=== PATIENT | female | born 1950 | race Caucasian/White ===

== ENCOUNTER 2017-07-03 05:25 | Observation (INO) | payer MEDICARE ==
[~2017-07-03] VITALS: Ht 152.4 cm; Wt 85.7 kg
[2017-07-03] MEDS ORDERED: ONDANSETRON HCL INJ 2 MG/ML VIAL IV STA (06:22)
[2017-07-03] MEDS ORDERED: PANTOPRAZOLE 40 MG 10ML VIAL IV STA (06:22)
[2017-07-03] MEDS ORDERED: MORPHINE SULFATE 2 MG/ML SYR IV STA (06:22)
[2017-07-03] MEDS ORDERED: SODIUM CHLORIDE 0.9% 1000ML 1,000 ML IV STA ×2 (06:22→16:08)
[2017-07-03 06:52] LABS: BASOPHILS % 0.2 % (0.0-1.0); HEMATOCRIT 41.7 % (34.2-44.1); LYMPHOCYTES # (AUTO) 0.5 (1.0-3.2); LYMPHOCYTES % 3.8 % (18.0-39.1); MEAN CORPUSCULAR VOLUME 91.6 fL (81-99); MONOCYTES # (AUTO) 0.3 (0.2-0.8); MONOCYTES % 2.6 % (4.4-11.3); PLATELET COUNT 283 x10e3/uL (140-360); RED BLOOD COUNT 4.55 x10e6/uL (3.6-5.1); RED CELL DISTRIBUTION WIDTH 12.5 % (11.7-14.4)
[2017-07-03 06:54] LABS: BILIRUBIN,URINE NEGATIVE (NEGATIVE); CLARITY,URINE HAZY (CLEAR); COLOR,URINE YELLOW (YELLOW); KETONES,URINE TRACE (NEGATIVE); LEUKOCYTE ESTERASE ,URINE NEGATIVE (NEGATIVE); NITRITE,URINE NEGATIVE (NEGATIVE); PROTEIN,URINE DIPSTICK NEGATIVE (NEGATIVE); URINE UROBILINOGEN 0.2 mg/dL (0.2 - 1)
[2017-07-03 07:07] LABS: WBC,URINE (MAN) 0-5 /HPF (0-5)
[2017-07-03 07:08] LABS: AMORPHOUS SEDIMENT,URINE MODERATE (FEW); EPITHELIAL CELLS,URINE RARE /LPF; MUCUS,URINE MODERATE (RARE); RBC,URINE 0-5 /HPF (0-5)
[2017-07-03 07:31] LABS: ALANINE AMINOTRANSFERASE 34 IU/L (0-55); ALBUMIN 4.8 g/dL (3.5-5.0); ALBUMIN/GLOBULIN RATIO 1.3 (0.8-2.0); ALKALINE PHOSPHATASE 67 IU/L (40-150); AMYLASE 67 U/L (25-125); ANION GAP 15.7 mmol/L (8-16); BLOOD UREA NITROGEN 16 mg/dL (7-26); BUN/CREATININE RATIO 20 (6-25); CALCIUM 9.7 mg/dL (8.4-10.2); CARBON DIOXIDE 22 mmol/L (22-29); CHLORIDE 99 mmol/L (98-107); CREATINE KINASE 243 IU/L (29-168); CREATININE, SERUM 0.81 mg/dL (0.57-1.11); EST GLOMERULAR FILTRATION RATE > 60 ML/MIN (60-); GLUCOSE 182 mg/dL (74-118); LIPASE 11 U/L (8-78); POTASSIUM 3.7 mmol/L (3.5-5.1); SODIUM 133 mmol/L (136-145)
[2017-07-03 07:59] LABS: INR 1.02; PROTHROMBIN TIME 12.6 seconds (11.9-14.5)
[2017-07-03 08:00] LABS: PARTIAL THROMBOPLASTIN TIME 27.2 seconds (23.8-35.5)
--- NOTE | 2017-07-03 09:01 | Diagnostic Imaging Report ---
EXAMINATION: Chest, CHEST SINGLE (PORTABLE) INDICATION: Chest pain COMPARISON: None FINDINGS: LINES: None. Heart: Normal cardiac silhouette. Vascular: The pulmonary vasculature is within normal limits. Mediastinum: No mediastinal, hilar, or axillary mass or lymphadenopathy. Lungs: No parenchymal mass. No focal consolidation. Pleura: No pleural effusion. No pneumothorax. Bones: No acute osseous abnormality. Soft tissues: Normal. Impression: No acute radiographic abnormality. Signed by: Dr. Molina Reyes M.D. on 07/03/2017 8:58 AM
--- NOTE | 2017-07-03 09:10 | Diagnostic Imaging Report ---
EXAM: CT Abdomen and Pelvis WITH contrast INDICATION: Abdominal pain COMPARISON: None. TECHNIQUE: Abdomen and pelvis were scanned utilizing a multidetector helical scanner from the lung base to the pubic symphysis after administration of contrast. Coronal and sagittal reformations were obtained. Protocol: General survey IV CONTRAST: 100 mL of Isovue 370 ORAL CONTRAST: Water COMPLICATIONS: None RADIATION DOSE: Total Exam DLP: 630.9 mGy*cm. CTDIvol has been reviewed. It is below the limits set by the Radiation Protocol Committee (RPC). FINDINGS: LINES: None. Lower thorax: No parenchymal abnormality. No pneumothorax. No pleural effusion. Liver: No focal mass. No hepatomegaly. Normal parenchyma. The hepatic and portal veins are patent. Gallbladder: No gallstones. No gallbladder distention. Biliary tree: No intrahepatic duct dilation. No extrahepatic duct dilation. Spleen: No splenomegaly. No focal mass. Pancreas: Normal parenchymal enhancement. No focal mass. Normal pancreatic duct. No peripancreatic inflammatory changes. Kidneys: No obstructing calculi. No hydronephrosis. No solid enhancing mass. No cysts. No perinephric soft tissue inflammatory changes. Adrenal glands: No adrenal nodules.. Bladder: Normal urinary bladder. Pelvic organs: Hysterectomy. No ovaries are visualized. GI: No bowel wall thickening. No air-fluid levels. The stomach and small bowel are normal. The colon is normal. The appendix is distended and fluid-filled, measuring 1.7 cm on greatest transverse diameter, series 2 image 59 minimal adjacent soft tissue inflammatory changes, series 2 image 57. A moderate amount of retained feces limits intraluminal evaluation of the colon. Peritoneum/retroperitoneum: No pneumoperitoneum. No ascites. No drainable fluid collection. Lymph nodes: No lymphadenopathy. . Vessels: The abdominal aorta and iliac vessels are patent. The celiac, superior mesenteric, and inferior mesenteric arteries are patent. Single bilateral renal arteries are patent. Atherosclerotic calcifications. Bones: No focal abnormality. Degenerative changes of the lumbar spine. Fusion of T11 and T12 with kyphotic angulation. Soft tissues: No focal abnormality. IMPRESSION: Fluid-filled distended appendix with adjacent soft tissue inflammatory changes likely represents acute appendicitis. No evidence of perforation or abscess formation. The findings were discussed with Dr. Mcpherson at 0905 hours on 07/03/2017. Signed by: Dr. Molina Reyes M.D. on 07/03/2017 9:06 AM
[2017-07-03] MEDS ORDERED: PIPER-TAZ 3.375 GM 50 ML IV STA (09:32)
[2017-07-03] MEDS ORDERED: D5.45%NS/KCL 20MEQ 1,000 ML IV SCH (09:33)
[2017-07-03] MEDS ORDERED: ONDANSETRON HCL INJ 2 MG/ML VIAL IV PRN ×2 (09:45→16:15)
[2017-07-03] MEDS ORDERED: MORPHINE SULFATE 2 MG/ML SYR IV PRN ×2 (09:45→16:15)
--- OUTSIDE RECORDS SUMMARY | 2017-07-03 09:56 | XMS REPORT ---
Author [facility] Address Unknown Phone Unavailable Care Team Providers Care Residential Lawn Specialist Name Role Phone VENUS JUAREZ Unavailable Unavailable Problems This patient has no known problems. Allergies, Adverse Reactions, Alerts This patient has no known allergies or adverse reactions. Medications This patient has no known medications. Results Test Description Test Time Test Comments Text Results Atomic Results Result Comments CHEST SINGLE (PORTABLE) [place] [address] Patient Name: LEONARDA GAUTHIER MR #: [id number] : 1950 Age/Sex: 67/F Req #: [id number] Adm Physician: Ordered by: ANGEL GARCIA MD Report #: [id number] Location: ER Room/Bed: Procedure: [id number] DX/CHEST SINGLE (PORTABLE) Exam Date: 07/03/17 Exam Time: 0840 REPORT STATUS: Signed EXAMINATION: Chest, CHEST SINGLE (PORTABLE) INDICATION: Chest pain COMPARISON : None FINDINGS: LINES: None. Heart: Normal cardiac silhouette. Vascular: The pulmonary vasculature is within normal limits. Mediastinum: No mediastinal, hilar, or axillary mass or lymphadenopathy. Lungs: No parenchymal mass. No focal consolidation. Pleura: No pleural effusion. No pneumothorax. Bones: No acute osseous abnormality. Soft tissues: Normal. Impression: No acute radiographic abnormality. Signed by: Dr. Frankie Kulkarni M.D. on 07/03/2017 8:58 AM Dictated By: FRANKIE KULKARNI MD 7 COPY TO: ANGEL GARCIA MD CT ABDOMEN/PELVIS W [facility] [address] [place] [address] Patient Name: LEONARDA GAUTHIER MR #: [id number] : 1950 Age/Sex: 67/F Req # : [id number] Adm Physician: Ordered by: ANGEL GARCIA MD Report #: [id number] Location: ER Room/Bed: Procedure: [id number] CT/CT ABDOMEN/PELVIS W Exam Date: 07/03/17 Exam Time : 0820 REPORT STATUS: Signed EXAM: CT Abdomen and Pelvis WITH contrast INDICATION: Abdominal pain COMPARISON: None. TECHNIQUE: Abdomen and pelvis were scanned utilizing a multidetector helical scanner from the lung base to the pubic symphysis after administration of contrast. Coronal and sagittal reformations were obtained. Protocol: General survey IV CONTRAST: 100 mL of Isovue 370 ORAL CONTRAST: Water COMPLICATIONS : None RADIATION DOSE: Total Exam DLP: 630.9 mGy*cm. CTDIvol has been reviewed. It is below the limits set by the Radiation Protocol Committee (RPC) . FINDINGS: LINES: None. Lower thorax: No parenchymal abnormality. No pneumothorax. No pleural effusion. Liver: No focal mass. No hepatomegaly. Normal parenchyma. The hepatic and portal veins are patent. Gallbladder: No gallstones. No gallbladder distention. Biliary tree: No intrahepatic duct dilation. No extrahepatic duct dilation. Spleen: No splenomegaly. No focal mass. Pancreas: Normal parenchymal enhancement. No focal mass. Normal pancreatic duct. No peripancreatic inflammatory changes. Kidneys: No obstructing calculi. No hydronephrosis. No solid enhancing mass. No cysts. No perinephric soft tissue inflammatory changes. Adrenal glands: No adrenal nodules.. Bladder: Normal urinary bladder. Pelvic organs: Hysterectomy. No ovaries are visualized. GI: No bowel wall thickening. No air-fluid levels. The stomach and small bowel are normal. The colon is normal. The appendix is distended and fluid-filled, measuring 1.7 cm on greatest transverse diameter, series 2 image 59 minimal adjacent soft tissue inflammatory changes, series 2 image 57. A moderate amount of retained feces limits intraluminal evaluation of the colon. Peritoneum/retroperitoneum: No pneumoperitoneum. No ascites. No drainable fluid collection. Lymph nodes: No lymphadenopathy. . Vessels: The abdominal aorta and iliac vessels are patent. The celiac, superior mesenteric, and inferior mesenteric arteries are patent. Single bilateral renal arteries are patent. Atherosclerotic calcifications. Bones: No focal abnormality. Degenerative changes of the lumbar spine. Fusion of T11 and T12 with kyphotic angulation. Soft tissues: No focal abnormality. IMPRESSION: Fluid-filled distended appendix with adjacent soft tissue inflammatory changes likely represents acute appendicitis. No evidence of perforation or abscess formation. The findings were discussed with Dr. Juarez at 0905 hours on 07/03/2017. Signed by: Dr. Frankie Kulkarni M.D. on 07/03/2017 9:06 AM Dictated By: FRANKIE KULKARNI MD 5 Transcribed By: LEXA on 07/03/17905 COPY TO: ANGEL GARCIA MD
[2017-07-03] MEDS ORDERED: IOPAMIDOL 370 MG/ML 200 ML INFUS..BTL INJ ONE (10:57)
[2017-07-03] MEDS ORDERED: SODIUM CHLORIDE 0.9% 50ML 50 ML ONE (10:57)
[2017-07-03] MEDS ORDERED: HYDROCODONE/APAP 7.5MG-325MG 1 EA TAB PO PRN ×2 (13:30→16:15)
--- NOTE | 2017-07-03 13:57 | Operative Report ---
DATE OF PROCEDURE: July 03, 2017 PREOPERATIVE DIAGNOSIS: Acute appendicitis. POSTOPERATIVE DIAGNOSIS: Acute appendicitis. PROCEDURE PERFORMED: Appendectomy laparoscopically. ANESTHESIA: General endotracheal. ESTIMATED BLOOD LOSS: Minimal. DRAINS: None. COMPLICATIONS: None. INDICATIONS AND FINDINGS: The patient is a 67-year-old healthy female admitted complaining of abdominal pain for several days. The pain appeared in the mid abdominal and upper area then localized to the right lower quadrant. Patient had a CT scan of the abdomen in the emergency room that revealed changes consistent with acute appendicitis. INTRAOPERATIVE FINDINGS: Acute appendicitis with an appendix that was thickened with some surrounded erythema. There was no abscess formation and no perforation. There were some pelvic adhesions from previous . DESCRIPTION OF PROCEDURE: With the patient lying on the operative table in the supine position after administration of general anesthesia, she was prepped and draped for appendectomy laparoscopically. The procedure was begun by establishing a pneumoperitoneum in the umbilical site after stab wound was made in that location and the saline drop test was performed. Pneumoperitoneum was insufflated to 15 mm of pressure and then an 11-12 trocar placed in that location. We placed a total of 3 other 5-mm trocars, one in the right upper quadrant, one in the suprapubic and right lower quadrant region, and another one in the left lower quadrant region. The appendix was then grasped with the bowel clamps and mobilized until we were able to see the junction of the appendix with the cecum. The mesoappendix was handled by cauterization as the appendix was somewhat adherent to the pelvis and the cecum to the lateral wall, but we were able with serial mobilization and electrocautery to deal with the mesoappendix that way instead of using the Endo JAMAAL stapler. Once we prepared the appendix for transection, we transected appendix with a small piece of cecum carefully preserving the ileocecal valve. The specimen was then placed in an Endobag and removed through the umbilical trocar. The right lower quadrant was irrigated. There was no bile leak and no bleeding. Then, we suctioned all the fluid out and then placed omentum off of the appendiceal stump and then released the pneumoperitoneum, closed the wounds using 0 Vicryl for the umbilical fascia, 3-0 Vicryl for the subcutaneous tissue in that location as well as subxiphoid port and the skin of all the ports was closed using sorin. Antonio 0.25% with epinephrine was given as local block at the end of the case. The patient tolerated the procedure well and taken to recovery room in stable condition. Job#: [id number] NATHALY
[2017-07-03 14:33] VITALS: BP 131/71
[2017-07-03] MEDS ORDERED: PIPER-TAZ 3.375 GM/50 ML BAG IV SCH (15:00)
[2017-07-03 15:29] VITALS: BP 131/71
[2017-07-03 15:38] VITALS: BP 131/71
[2017-07-03] MEDS: D5.45%NS/KCL 20MEQ 1,000 ML IV SCH (16:15)
[2017-07-03] MEDS: PIPER-TAZ 3.375 GM/50 ML BAG IV SCH ×2 (16:19→21:39)
[2017-07-03 16:37] VITALS: BP 118/58
[2017-07-03] MEDS ORDERED: DEXAMETHASONE SOD PHOS INJ 4 MG/ML VIAL ONE (17:15)
[2017-07-03] MEDS ORDERED: GLYCOPYRROLATE INJ 1MG/ 5 ML SYR ONE (17:15)
[2017-07-03] MEDS ORDERED: NEOSTIGMINE 5 MG/5ML SYR ONE (17:15)
[2017-07-03] MEDS ORDERED: SEVOFLURANE INHAL SOLN 250 ML PEN BTL ONE (17:15)
[2017-07-03] MEDS ORDERED: ONDANSETRON HCL INJ 2 MG/ML VIAL ONE (17:15)
[2017-07-03] MEDS ORDERED: ROCURONIUM BROMIDE 10 MG/ML 5ML VIAL ONE (17:15)
[2017-07-03] MEDS ORDERED: PROPOFOL IV EMULSION 10 MG/ML 20 ML VIAL ONE (17:15)
[2017-07-03] MEDS ORDERED: MIDAZOLAM HCL 2 MG/2 ML VIAL ONE (17:33)
[2017-07-03] MEDS ORDERED: FENTANYL CITRATE/PF 100MCG/2 ML INJ ONE (17:33)
[2017-07-03 20:00] VITALS: BP 125/58
[2017-07-04] VITALS (7 sets, daily range): BP systolic 90–137; BP diastolic 46–73
[2017-07-04] MEDS: D5.45%NS/KCL 20MEQ 1,000 ML IV SCH ×3 (01:17→17:06)
[2017-07-04] MEDS: PIPER-TAZ 3.375 GM/50 ML BAG IV SCH ×3 (04:00→17:00)
[2017-07-04 07:07] LABS: BASOPHILS % 0.1 % (0.0-1.0); EOSINOPHILS % 0.1 % (0.0-6.0); HEMOGLOBIN 11.6 g/dL (12.0-16.0); LYMPHOCYTES # (AUTO) 1.1 (1.0-3.2); LYMPHOCYTES % 14.4 % (18.0-39.1); MEAN CORPUSCULAR HEMOGLOBIN 32.5 pg (28-32); MEAN CORPUSCULAR HGB CONC 34.1 g/dL (31-35); MEAN CORPUSCULAR VOLUME 95.2 fL (81-99); MONOCYTES # (AUTO) 0.6 (0.2-0.8); MONOCYTES % 7.8 % (4.4-11.3); NEUTROPHILS # (AUTO) 6.1 (2.1-6.9); NEUTROPHILS % 77.1 % (38.7-80.0); PLATELET COUNT 230 x10e3/uL (140-360); RED BLOOD COUNT 3.57 x10e6/uL (3.6-5.1); RED CELL DISTRIBUTION WIDTH 12.9 % (11.7-14.4)
[2017-07-04 07:34] LABS: ANION GAP 11.2 mmol/L (8-16); BLOOD UREA NITROGEN 11 mg/dL (7-26); BUN/CREATININE RATIO 13 (6-25); CALCIUM 8.9 mg/dL (8.4-10.2); CARBON DIOXIDE 25 mmol/L (22-29); CHLORIDE 107 mmol/L (98-107); CREATININE, SERUM 0.85 mg/dL (0.57-1.11); EST GLOMERULAR FILTRATION RATE > 60 ML/MIN (60-); GLUCOSE 134 mg/dL (74-118); POTASSIUM 4.2 mmol/L (3.5-5.1); SODIUM 139 mmol/L (136-145)
[2017-07-04] MEDS ORDERED: MAGNESIUM HYDROXIDE 30 ML UDC PO PRN (11:00)
[2017-07-04] MEDS ORDERED: BISACODYL 10 MG SUPP PR PRN (11:30)
[2017-07-05] VITALS: BP 92/53
[2017-07-05 04:00] VITALS: BP 104/52
[2017-07-05] MEDS: PIPER-TAZ 3.375 GM/50 ML BAG IV SCH ×3 (04:10→09:43)
[2017-07-05 08:00] VITALS: BP 99/56
[2017-07-05 12:34] VITALS: BP 112/54
== END 2017-07-05 16:35 | disposition home or self-care (01) ==
LOC: ER 05:25 → UNDOADMOB 09:54 → ERHOLD 09:54 → OR 10:41 → INTOOBSV 13:23 → MED/SURG 13:23
PROVIDERS: ADMIT Surgery; ATTEND Surgery
DX: K35.80 Unspecified acute appendicitis (principal); K59.00 Constipation, unspecified
CPT/HCPCS: 36415 ×2; 44970; 71045; 74177; 80048; 80053; 81001; 82150; 82550; 82553; 83605; 83690; 83735; 84484; 85025 ×2; 85610; 85730; 88304; 93005; 97116; 97161; C1766; G0378 ×3; J1100; J2250; J2270; J2405; J2543 ×3; J7030; Q9967

== ENCOUNTER 2018-02-21 11:41 | Emergency (ER) | payer MEDICARE ==
[~2018-02-21] VITALS: Ht 157.5 cm; Wt 85.7 kg
[2018-02-21] MEDS ORDERED: MECLIZINE HCL 12.5 MG TAB PO ONE (12:00)
[2018-02-21 13:30] LABS: BILIRUBIN,URINE NEGATIVE (NEGATIVE); CLARITY,URINE SL CLOUDY (CLEAR); COLOR,URINE YELLOW (YELLOW); KETONES,URINE NEGATIVE (NEGATIVE); LEUKOCYTE ESTERASE ,URINE NEGATIVE (NEGATIVE); NITRITE,URINE NEGATIVE (NEGATIVE); PROTEIN,URINE DIPSTICK TRACE (NEGATIVE); URINE UROBILINOGEN 0.2 mg/dL (0.2 - 1)
--- NOTE | 2018-02-21 13:31 | Diagnostic Imaging Report ---
EXAMINATION: Head CT HISTORY: DCIS, vertigo COMPARISON: None. TECHNIQUE: Multidetector axial images were obtained without contrast from the foramen magnum to the vertex . The images were reconstructed using brain and bone algorithms. Thin section brain images were reformatted into coronal and sagittal planes. Intravenous contrast: None. Image quality: Motion/streaking artifact limits the evaluation of the skull base and posterior cranial fossa. Dose modulation, iterative reconstruction, and/or weight based adjustment of the mA/kV was utilized to reduce the radiation dose to as low as reasonably achievable. FINDINGS: Parenchyma: 1. No abnormal densities. 2. No mass or hemorrhage. No CT evidence of acute territorial vascular insult. 3. Small approximately 2 mm calcification along the medial aspect of the right temporal lobe, may represent sequela from remote infection such as neurocysticercosis. Extra-axial spaces:No abnormal density. No extra-axial fluid collections Brain volume: Normal for age. Ventricles: No hydrocephalus or displacement. Arteries: No density suggestive of thrombus. Dural sinuses: No abnormal density. Extra-axial spaces: No abnormal density. Foramen magnum: No mass, Chiari malformation, or basilar invagination. Sella: Enlarged, partially empty, mostly CSF filled. Paranasal/mastoid sinuses: Imaged portions unremarkable. Skull/Scalp: Diffuse prominent thickening and increased density of the skull base and calvaria bones, no discrete lytic lesions.. IMPRESSION: No intracranial mass, hemorrhage or infarct. Signed by: Dr. Haleigh Mirza M.D. on 02/21/2018 1:28 PM
--- NOTE | 2018-02-21 13:34 | Diagnostic Imaging Report ---
EXAMINATION: CHEST SINGLE (NOT PORTABLE) INDICATION: Dizziness COMPARISON: July 03, 2017 FINDINGS: TUBES and LINES: None. LUNGS: Lungs are well inflated. Lungs are clear. There is no evidence of pneumonia or pulmonary edema. PLEURA: No pleural effusion or pneumothorax. HEART AND MEDIASTINUM: The cardiomediastinal silhouette is unremarkable. BONES AND SOFT TISSUES: No acute osseous lesion. Soft tissues are unremarkable. UPPER ABDOMEN: No free air under the diaphragm. IMPRESSION: No acute thoracic abnormality. Signed by: Dr. Alexandre Craig M.D. on 02/21/2018 1:30 PM
[2018-02-21 13:41] LABS: BACTERIA,URINE FEW /HPF; EPITHELIAL CELLS,URINE RARE /LPF
[2018-02-21 14:08] LABS: BASOPHILS % 0.5 % (0.0-1.0); EOSINOPHILS # (AUTO) 0.1 (0.0-0.4); EOSINOPHILS % 2.4 % (0.0-6.0); HEMOGLOBIN 14.2 g/dL (12.0-16.0); LYMPHOCYTES # (AUTO) 1.5 (1.0-3.2); LYMPHOCYTES % 35.5 % (18.0-39.1); MEAN CORPUSCULAR HEMOGLOBIN 32.3 pg (28-32); MEAN CORPUSCULAR HGB CONC 34.6 g/dL (31-35); MEAN CORPUSCULAR VOLUME 93.4 fL (81-99); MONOCYTES # (AUTO) 0.2 (0.2-0.8); MONOCYTES % 5.8 % (4.4-11.3); NEUTROPHILS # (AUTO) 2.3 (2.1-6.9); NEUTROPHILS % 55.3 % (38.7-80.0); PLATELET COUNT 301 x10e3/uL (140-360); RED BLOOD COUNT 4.39 x10e6/uL (3.6-5.1)
[2018-02-21 14:27] LABS: ALANINE AMINOTRANSFERASE 28 IU/L (0-55); ALBUMIN 4.5 g/dL (3.5-5.0); ALBUMIN/GLOBULIN RATIO 1.3 (0.8-2.0); ALKALINE PHOSPHATASE 64 IU/L (40-150); ANION GAP 15.1 mmol/L (8-16); BLOOD UREA NITROGEN 15 mg/dL (7-26); BUN/CREATININE RATIO 18 (6-25); CARBON DIOXIDE 24 mmol/L (22-29); CHLORIDE 105 mmol/L (98-107); CREATINE KINASE 176 IU/L (29-168); CREATININE, SERUM 0.83 mg/dL (0.57-1.11); EST GLOMERULAR FILTRATION RATE > 60 ML/MIN (60-); GLUCOSE 104 mg/dL (74-118); MAGNESIUM 2.1 MG/DL (1.3-2.1); POTASSIUM 4.1 mmol/L (3.5-5.1); SODIUM 140 mmol/L (136-145)
[2018-02-21 14:51] LABS: THYROID STIMULATING HORMONE 1.326 uIU/mL (0.350-4.940)
[2018-02-21 16:12] VITALS: BP 134/77
== END 2018-02-21 16:31 | disposition home or self-care (01) ==
LOC: ER 11:41
DX: R42 Dizziness and giddiness (principal); R53.1 Weakness; H81.392 Other peripheral vertigo, left ear
CPT/HCPCS: 36415; 70450; 71045; 80053; 81001; 82550; 82553; 83735; 84443; 84484; 85025; 87086; 93005; 99284

== ENCOUNTER 2018-08-07 10:41 | Emergency (ER) | payer MEDICARE ==
[~2018-08-07] VITALS: Ht 157.5 cm; Wt 85.7 kg
[2018-08-07 11:21] LABS: BASOPHILS % 0.2 % (0.0-1.0); EOSINOPHILS # (AUTO) 0.1 (0.0-0.4); EOSINOPHILS % 0.9 % (0.0-6.0); HEMATOCRIT 43.1 % (34.2-44.1); HEMOGLOBIN 14.8 g/dL (12.0-16.0); LYMPHOCYTES # (AUTO) 0.8 (1.0-3.2); LYMPHOCYTES % 9.6 % (18.0-39.1); MEAN CORPUSCULAR HEMOGLOBIN 31.9 pg (28-32); MEAN CORPUSCULAR HGB CONC 34.3 g/dL (31-35); MEAN CORPUSCULAR VOLUME 92.9 fL (81-99); MONOCYTES # (AUTO) 0.5 (0.2-0.8); MONOCYTES % 5.9 % (4.4-11.3); NEUTROPHILS % 82.7 % (38.7-80.0); PLATELET COUNT 309 x10e3/uL (140-360); RED BLOOD COUNT 4.64 x10e6/uL (3.6-5.1); RED CELL DISTRIBUTION WIDTH 12.4 % (11.7-14.4)
[2018-08-07 11:46] LABS: STREPTOCOCCUS GRP A ANTIGEN NEGATIVE (NEGATIVE)
[2018-08-07 11:47] LABS: ALANINE AMINOTRANSFERASE 26 IU/L (0-55); ALBUMIN 4.2 g/dL (3.5-5.0); ALBUMIN/GLOBULIN RATIO 1.1 (0.8-2.0); ALKALINE PHOSPHATASE 65 IU/L (40-150); ANION GAP 13.8 mmol/L (8-16); BLOOD UREA NITROGEN 14 mg/dL (7-26); BUN/CREATININE RATIO 17 (6-25); CALCIUM 9.2 mg/dL (8.4-10.2); CARBON DIOXIDE 24 mmol/L (22-29); CHLORIDE 104 mmol/L (98-107); CREATININE, SERUM 0.82 mg/dL (0.57-1.11); EST GLOMERULAR FILTRATION RATE > 60 ML/MIN (60-); GLUCOSE 122 mg/dL (74-118); POTASSIUM 3.8 mmol/L (3.5-5.1); SODIUM 138 mmol/L (136-145)
[2018-08-07 11:50] LABS: BILIRUBIN,URINE NEGATIVE (NEGATIVE); CLARITY,URINE CLEAR (CLEAR); COLOR,URINE YELLOW (YELLOW); KETONES,URINE NEGATIVE (NEGATIVE); LEUKOCYTE ESTERASE ,URINE NEGATIVE (NEGATIVE); NITRITE,URINE NEGATIVE (NEGATIVE); PROTEIN,URINE DIPSTICK NEGATIVE (NEGATIVE); URINE UROBILINOGEN 0.2 mg/dL (0.2 - 1)
[2018-08-07 11:57] LABS: INFLUENZAE A&B ANTIGEN (RAPID) NEGATIVE (NEGATIVE)
[2018-08-07 12:01] LABS: EPITHELIAL CELLS,URINE RARE /LPF
--- NOTE | 2018-08-07 12:43 | Diagnostic Imaging Report ---
EXAM: CHEST SINGLE (PORTABLE), AP Portable DATE: 08/07/2018 Time stamp on exam: 11:33 AM INDICATION: Flulike symptoms COMPARISON: 04/23/2018 FINDINGS: LINES/TUBES: None LUNGS: No consolidations or edema. PLEURA: No effusions or pneumothorax. HEART AND MEDIASTINUM: Normal size and contour. BONES AND SOFT TISSUES: There is increased density of the bones suggesting metabolic bone disease or diffuse sclerotic metastasis. IMPRESSION: 1. No acute thoracic abnormality. 2. Diffusely increased density of the bones. Signed by: Dr. Alex Tidwell DO on 08/07/2018 12:40 PM
== END 2018-08-07 14:45 | disposition home or self-care (01) ==
LOC: ER 10:41
DX: R50.9 Fever, unspecified (principal); R05 Cough; J20.9 Acute bronchitis, unspecified
CPT/HCPCS: 36415; 71045; 80053; 81001; 83518; 85025; 87070; 87400; 99284